=== PATIENT | female | born 1975 | race Caucasian/White ===

== ENCOUNTER 2021-08-27 19:19 | Emergency (ER) | payer BC ==
[~2021-08-27] VITALS: Ht 154.9 cm; Wt 55.8 kg
[2021-08-27] MEDS ORDERED: CLARITIN (19:37)
== END 2021-08-27 22:30 | disposition home or self-care (01) ==
LOC: ER 19:19
DX: T78.1XXA Other adverse food reactions, not elsewhere classified, initial encounter (principal); X58.XXXA Exposure to other specified factors, initial encounter